=== PATIENT | male | born 1955 | race Caucasian/White ===

== ENCOUNTER 2017-07-23 17:52 | Emergency (ER) | payer BC ==
[~2017-07-23] VITALS: Ht 170.2 cm; Wt 73.6 kg
[~2017-07-23 17:52] MED LIST: LORTAB 5-325 M1 EACH PO; NAPROSYN500 MG PO
[2017-07-23 18:55] LABS: HEMATOCRIT 35.3 % (38.0-50.0); HEMOGLOBIN 12.3 G/DL (12.5-16.6); MCH 33.2 PG (29.0-34.0); MCHC 34.8 G/DL (30.0-36.0); MCV 95.4 FL (86-99); NRBC (%) 0.3 /100 WBC (0-0); PLATELET COUNT 488 K/uL (156-360); RBC DIS.WIDTH-SD 92.8 % (39-53)
[2017-07-23 19:07] LABS: ALBUMIN 4.7 g/dL (3.2-4.8)
[2017-07-23 19:08] LABS: CHLORIDE 105 mEq/L (99-109); POTASSIUM 3.9 mEq/L (3.7-5.4); SODIUM 138 mEq/L (136-147)
[2017-07-23 19:10] LABS: GLUCOSE 109 mg/dL (70-99); TOTAL PROTEIN 7.6 g/dL (6.4-8.3)
[2017-07-23 19:12] LABS: TOTAL BILIRUBIN 1.3 mg/dL (0.0-1.0)
[2017-07-23 19:13] LABS: ALKALINE PHOSPHATASE 83 IU/L (3-129)
[2017-07-23 19:14] LABS: CREATININE 0.7 mg/dL (0.6-1.3); GFR ESTIMATE (CALCULATED) > 59 mL/min/ (58.99-99999)
[2017-07-23 19:15] LABS: AST (GOT) 31 IU/L (2-34); UREA NITROGEN (BUN) 16 mg/dL (9-23)
[2017-07-23 19:17] LABS: ALT (GPT) 30 IU/L (3-49)
[2017-07-23] MEDS ORDERED: COLACE100 MG PO (22:02)
[2017-07-23] MEDS ORDERED: MIRALAX17 GM PO (22:02)
[2017-07-23 22:18] VITALS: BP 172/84
== END 2017-07-23 22:18 | disposition home or self-care (01) ==
LOC: EME 17:52
DX: K92.2 Gastrointestinal hemorrhage, unspecified (principal); Z86.010 Personal history of colon polyps; F17.200 Nicotine dependence, unspecified, uncomplicated
CPT/HCPCS: 74022; 80053; 81003; 85027; 99281; 99283